=== PATIENT | male | born 1985 | race Caucasian/White ===

== ENCOUNTER 2020-01-14 21:37 | Emergency (ER) | payer OTHER ==
[~2020-01-14] VITALS: Wt 52.2 kg
[~2020-01-14 21:37] MED LIST: CLINDAMYCIN HC300 MG PO; FLEXERIL5 MG PO; MOTRIN100 M1 PO; Motrin,Rufen800 MG PO; NAPROSYN500 MG PO; PENICILLIN VK500 MG PO; TRAMADOL HCL50 MG PO; ULTRAM50 MG PO; VICODIN 500 MG-1 TAB PO; VOLTAREN50 M1 PO
== END 2020-01-14 22:15 | disposition home or self-care (01) ==
LOC: ED 21:37
DX: T63.441A Toxic effect of venom of bees, accidental (unintentional), initial encounter (principal); J45.909 Unspecified asthma, uncomplicated; F17.200 Nicotine dependence, unspecified, uncomplicated; Y92.89 Other specified places as the place of occurrence of the external cause

== ENCOUNTER 2023-01-27 17:01 | Emergency (ER) | payer OTHER ==
[~2023-01-27] VITALS: Wt 52.2 kg
[2023-01-27] MEDS ORDERED: PENICILLIN VK500 MG PO (17:35)
== END 2023-01-27 18:00 | disposition home or self-care (01) ==
LOC: ED 17:01
DX: K08.89 Other specified disorders of teeth and supporting structures (principal); J45.909 Unspecified asthma, uncomplicated

== ENCOUNTER 2024-04-05 21:55 | Emergency (ER) | payer SELFPAY ==
[~2024-04-05] VITALS: Ht 172.7 cm; Wt 52.2 kg
[2024-04-05 22:45] LABS: BASO % 0.4 % (0.0-1.0); EOS % 0.1 % (1.0-4.0); HEMATOCRIT 39.6 % (42.0-52.0); MEAN CELL VOLUME 93.2 fl (80.0-94.0); MEAN CORPUSCULAR HGB 30.4 pg (27.0-31.0); MEAN CORPUSCULAR HGB CONC 32.6 g/dl (33.0-37.0); MEAN PLATELET VOLUME 9.4 fl (9.6-12.3); MONO # 0.8 10*3/uL (0.1-1.0); MONO % 7.6 % (3.0-9.0); NEUT # 8.8 10*3/uL (2.3-7.9); NEUT % 81.1 % (47.0-73.0); PLATELET COUNT AUTOMATED 211 10*3/uL (130-400); RED BLOOD COUNT 4.25 10*6/uL (4.50-5.90); RED CELL DISTRI WIDTH 13.2 % (0-14.5); WHITE BLOOD COUNT 10.9 10*3/uL (4.8-10.8)
[2024-04-05 23:05] LABS: ALKALINE PHOSPHATASE 70 U/L (46-116); BUN 6 mg/dl (9-23); CHLORIDE 104 mmol/L (98-107); POTASSIUM 3.5 mmol/L (3.4-5.1); TOTAL PROTEIN 7.4 gm/dL (6.0-8.0)
[2024-04-05 23:07] LABS: ETHYL ALCOHOL < 3.0 mg/dl (<3); SGPT/ALT < 7 U/L (5-49)
[2024-04-06 00:14] LABS: URINE AMPHETAMINES Negative (1000ng/ml); URINE BARBITURATES Negative (200ng/ml); URINE BENZODIAZEPINES Negative (200ng/ml); URINE CANNABINOIDS (THC) Positive (50ng/ml); URINE COCAINE Negative (300ng/ml); URINE METHADONE Negative (300ng/ml); URINE OPIATES Negative (300ng/ml); URINE PHENCYCLIDINE Negative (25ng/ml)
[2024-04-06 00:15] LABS: BILIRUBIN Negative (Negative); BLOOD Trace-Lysed (Negative); CLARITY Clear (Clear); COLOR Yellow (Yellow); GLUCOSE Negative (Negative); KETONE Negative (Negative); LEUKO ESTERASE Negative (Negative); NITRITE Negative (Negative); PH 6.5 (4.5-8.0)
[2024-04-06 00:33] LABS: CALCIUM OXALATE CRYSTALS Trace
== END 2024-04-06 09:20 | disposition home or self-care (01) ==
LOC: ED 21:55
PROVIDERS: Internal Medicine
DX: F43.21 Adjustment disorder with depressed mood (principal)

== ENCOUNTER 2024-12-14 13:36 | Emergency (ER) | payer OTHER ==
[~2024-12-14] VITALS: Ht 175.2 cm; Wt 54.4 kg
[2024-12-14] MEDS ORDERED: PENICILLIN VK500 MG PO (14:03)
[2024-12-14] MEDS ORDERED: PENICILLIN V POTASSIUM 500 MG TAB PO ONE (14:35)
== END 2024-12-14 14:46 | disposition home or self-care (01) ==
LOC: ED 13:36
DX: K02.9 Dental caries, unspecified (principal)

== ENCOUNTER 2025-01-09 16:28 | Emergency (ER) | payer OTHER ==
[~2025-01-09] VITALS: Wt 54.4 kg
[2025-01-09] MEDS ORDERED: PENICILLIN-VK500 MG PO (17:28)
== END 2025-01-09 17:53 | disposition home or self-care (01) ==
LOC: ED 16:28
DX: K04.7 Periapical abscess without sinus (principal); J45.909 Unspecified asthma, uncomplicated